=== PATIENT | male | born 1950 | race Two or more races ===

== ENCOUNTER 2017-04-28 17:28 | Emergency (ER) | payer MEDICARE, OTHER ==
[~2017-04-28] VITALS: Ht 172.7 cm; Wt 63.5 kg
--- NOTE | ~2017-04-28 | CT16 ---
[facility] A Service of [facility] RADIOLOGY TEXT RESULTS PATIENT: LAKESHIA KAMARA LOCATION: [facility] : 52 UNIT #: [id number] AGE: [address]: Damien Puga MD SEX: M ORDER DR: [id number] [facility] [address] [place], [place] [address] [id number] MR#: [id number] Acc #: [id number] NAME: LAKESHIA KAMARA. : 1950 SEX: M STUDY DATE/TIME: 04/28/2017 18:58 UNIT: [facility] ROOM: STUDY DESCRIPTION: CT Angio Chest for PE Attending Physician: Damien Puga M.D. Ordering Physician: Damien Puga M.D. Primary Care Physician: Hi Holden M.D. MEDICAL IMAGING REPORT This report is preliminary unless electronic signature is present EXAM CTA chest with contrast 04/28/2017 HISTORY 67-year-old male with shortness of air beginning today. COMPARISON CT chest abdomen and pelvis 06/17/2003 TECHNIQUE Helical scan performed through the chest following the timed bolus administration of IV contrast per PE protocol. Coronal 3-D MIP reconstructions. Sagittal reformatted images. This CT exam was performed with one or more of the following radiation dose reduction techniques: automatic control, adjustment of mA and/or kV according to patient size, and iterative reconstruction. FINDINGS There is adequate opacification of pulmonary arteries and no filling defects demonstrated. Thoracic aorta normal in course and caliber without dissection. Heart size is borderline. No pericardial effusion. No pleural effusions. No pneumothorax. No parenchymal infiltrates. Biapical parenchymal scarring is unchanged from 2003. Severe emphysematous changes are again noted. Left hepatic lobe hemangioma is unchanged from the prior exam. Remainder of the visualized upper abdomen is unremarkable. No acute bony abnormality. IMPRESSION 1. Negative for pulmonary emboli. 2. Negative for thoracic aortic aneurysm/dissection. [facility] A Service [facility] RADIOLOGY TEXT RESULTS PATIENT: LAKESHIA KAMARA LOCATION: [facility] : 51 UNIT #: [id number] AGE: [address]: Damien Puga MD SEX: M ORDER DR: 3. Borderline cardiomegaly. 4. Severe emphysema. No focal pulmonary infiltrates. 5. Stable hepatic hemangioma in the left hepatic lobe. Dictated by... Beau Harkins M.D. THIS IS AN ELECTRONICALLY VERIFIED REPORT Beau Harkins M.D. at 04/29/2017 10:59 PM BRENNON/neris TD: 04/29/2017 22:40 JOB #: [id number] MEDICAL IMAGING REPORT Page 1 of 1 COPY
--- NOTE | ~2017-04-28 | CR72 ---
[facility] A Service of [facility] RADIOLOGY TEXT RESULTS PATIENT: LAKESHIA KAMARA LOCATION: [facility] : 51 UNIT #: [id number] AGE: [address]: Damien Puga MD SEX: M ORDER DR: [id number] [facility] [address] [place], [place] [address] [id number] MR#: [id number] Acc #: [id number] NAME: LAKESHIA KAMARA. : 1950 SEX: M STUDY DATE/TIME: 04/28/2017 18:17 UNIT: [facility] ROOM: STUDY DESCRIPTION: CR Chest Single View Portable Attending Physician: Damien Puga M.D. Ordering Physician: Damien Puga M.D. Primary Care Physician: Hi Holden M.D. MEDICAL IMAGING REPORT This report is preliminary unless electronic signature is present EXAM Portable chest. HISTORY Shortness of breath and fever, onset today. TECHNIQUE A single AP view of the chest was obtained and compared with 11/15/2011. FINDINGS Mild cardiomegaly and a tortuous aorta are again seen. Both lungs are clear with normal vascular markings. Emphysema is noted. Since the previous examination, no new infiltrates are seen. IMPRESSION No active disease. No new infiltrates are seen since the previous exam. Dictated by... Juan Rodriguez M.D. THIS IS AN ELECTRONICALLY VERIFIED REPORT Juan Rodriguez M.D. at 05/01/2017 7:12 AM ELA/belkis TD: 04/29/2017 22:11 JOB #: [id number] MEDICAL IMAGING REPORT Page 1 of 1 COPY
--- NOTE | ~2017-04-28 | EKG ---
PATIENT: LAKESHIA KAMARA UNIT #: [id number] Ventricular Rate: 118 BPM Atrial Rate: 118 BPM P-R Interval: 126 ms QRS Duration: 78 ms Q-T Interval: 302 ms QTC Calculation(Bezet): 423 ms P [place]: 54 degrees Calculated R [place]: -9 degrees Calculated T [place]: 55 degrees Diagnosis Line: Sinus tachycardia Diagnosis Line: Nonspecific ST and T wave abnormality Diagnosis Line: Abnormal ECG Diagnosis Line: No previous ECGs available Diagnosis Line: Confirmed by MELINDA HYDE MD ([id number]) on Diagnosis Line: 05/01/2017 4:39:36 PM INTERPRETING MD: ADRIAN
[~2017-04-28 17:28] MED LIST: AZITHROMYCIN250 MG PO; CIPRO PO; FLOMAX0.4 M1 PO; FLONASE 0.05% N16 G1; ZOFRAN ODT4 MG PO
[2017-04-28 17:51] LABS: ARTERIAL BLD GAS O2 SATURATION 86.6 % (90.0-100.0); ARTERIAL BLOOD GAS ALLEN TEST NORMAL; ARTERIAL BLOOD GAS CARBOXY HB 0.8 %sat (0.0-9.0); ARTERIAL BLOOD GAS HCO3 24.5 mmol/L; ARTERIAL BLOOD GAS MET HB 0.7 %sat (0.0-2.0); ARTERIAL BLOOD GAS PCO2 35.5 mmHg (35.0-45.0); ARTERIAL BLOOD GAS PO2 48.9 mmHg (80.0-100); ARTERIAL BLOOD GAS pH 7.448 (7.350-7.450); ARTERIAL DRAW? YES
[2017-04-28 17:52] LABS: ARTERIAL BLOOD GAS ART SITE RIGHT RADIAL; ARTERIAL BLOOD GAS DELIVERY ROOM AIR
[2017-04-28 17:57] LABS: BASOPHIL# 0.1 X10e3 (0-0.3); BASOPHIL% 1.1 % (0-2.5); EOSINOPHIL% 0.1 % (0.0-7.0); HEMATOCRIT 40.4 % (38.0-50.0); HEMOGLOBIN 13.9 gm/dL (13.0-16.0); LYMPHOCYTE# 0.9 X10e3 (1.0-3.5); LYMPHOCYTE% 11.5 % (17.0-45.0); MEAN CELL VOLUME 90.2 FL (83-96); MEAN CORPUSCULAR HGB CONC 34.4 g/dL (30-36); MEAN PLATELET VOLUME 8.3 FL (6.5-11.5); MONOCYTE# 0.2 X10e3 (0-1.0); MONOCYTE% 2.8 % (3.0-12.0); NEUTROPHIL# 6.4 X10e3 (1.5-7.1); NEUTROPHIL% 84.5 % (40-75); PLATELET COUNT 121 X10e3 (140-420); RED BLOOD COUNT 4.48 X10e (3.90-5.60); RED CELL DISTRIBUTION WIDTH 13.8 % (11.0-15.5); WHITE BLOOD COUNT 7.5 X10e3 (4.0-10.5)
[2017-04-28 18:00] LABS: DIFF IND NO
[2017-04-28 18:10] LABS: POC - CKMB 1.4 ng/mL (0.0-7.9); POC - TROPONIN <0.05 ng/mL (<=0.05)
[2017-04-28 18:26] LABS: BILIRUBIN,TOTAL 0.8 mg/dL (0.2-2.0); CALCIUM SERUM 9.2 mg/dL (8.4-10.2); GLOM FILT RATE Estimated 78.1 mL/min (>60); POTASSIUM 4.1 mmol/L (3.5-5.1); PROTEIN TOTAL SERUM 7.1 g/dL (6.0-8.3)
== END 2017-04-28 20:28 | disposition home or self-care (01) ==
LOC: CED 17:28
PROVIDERS: Emergency Medicine
DX: J44.1 Chronic obstructive pulmonary disease with (acute) exacerbation (principal); R74.0 Nonspecific elevation of levels of transaminase and lactic acid dehydrogenase [LDH]; J44.9 Chronic obstructive pulmonary disease, unspecified; F17.200 Nicotine dependence, unspecified, uncomplicated
CPT/HCPCS: 36415; 36600; 71010; 71275; 80053; 82553; 82803; 83605; 84484; 85025; 87040; 93005; 94640; 96361; 96374; 99285; J2060; Q9967